=== PATIENT | female | born 1990 | race Caucasian/White ===

== ENCOUNTER 2020-04-10 00:56 | Emergency (ER) | payer SELFPAY ==
[2020-04-10 01:49] LABS: Urine Appearance CLOUDY; Urine Bilirubin NEGATIVE (NEG); Urine Blood NEGATIVE (NEG); Urine Color YELLOW; Urine Glucose NEGATIVE (NEG); Urine Protein NEGATIVE (NEG); Urine Specific Gravity <=1.005 (1.005-1.030); Urine Urobilinogen 0.2 mg/dL (0.2-1.0); Urine pH 6.5 (5.0-7.0)
[2020-04-10 01:50] LABS: Urine Microscopic Reflex ORDER UMIC
[2020-04-10 01:51] LABS: Urine Blood NEGATIVE (NEG); Urine Glucose NEGATIVE (NEG); Urine Protein NEGATIVE (NEG); Urine Specific Gravity 1.015 (1.005-1.030); Urine pH 6.5 (5.0-7.0)
[2020-04-10] MEDS ORDERED: NA CHLORIDE 0.9% 1,000 ML ONE (01:55)
[2020-04-10 01:56] LABS: Protime INR 1.02
[2020-04-10 01:57] LABS: Urine Bacteria <20 /HPF (<20); Urine Culture Reflex Order NOT NEEDED; Urine RBC <5 /HPF (NONE SEEN)
[2020-04-10 01:57] LABS: Absolute Lymphocytes (CBC) 2.2 K/uL (0.7-4.9); Basophils % 0.8 % (0-1.3); Hematocrit 40.8 % (36.0-45.0); Lymphocytes % 39.5 % (15.3-44.8); MPV 8.7 fL (7.6-11.3)
[2020-04-10 02:01] LABS: Barbiturates NEGATIVE (NEGATIVE); METHAMPHETAM NEGATIVE (NEGATIVE); Methadone NEGATIVE (NEGATIVE); Opiates NEGATIVE (NEGATIVE); Phencyclidine NEGATIVE (NEGATIVE)
[2020-04-10 02:02] LABS: Benzodiazepines POSITIVE (NEGATIVE); Cocaine POSITIVE (NEGATIVE); THC Cannibis POSITIVE (NEGATIVE)
[2020-04-10 02:13] LABS: ALT/SGPT 22 U/L (12-78); AST/SGOT 12 U/L (15-37); Albumin 4.1 g/dL (3.4-5.0); Alkaline Phosphatase 44 U/L (45-117); BUN Blood Urea Nitrogen 6 mg/dL (7-18); Bicarbonate 25 mmol/L (21-32); Bilirubin Direct < 0.1 mg/dL (0-0.2); Bilirubin Total 0.2 mg/dL (0.2-1.0); Glucose Level 102 mg/dL (74-106); Magnesium 2.1 mg/dL (1.8-2.4); NT PRO-BNP 10 pg/mL (<125); Potassium 3.2 mmol/L (3.5-5.1); Sodium Level 139 mmol/L (136-145); Troponin (Emerg Dept Use Only) < 0.02 ng/mL (0.0-0.045)
--- NOTE | 2020-04-10 05:13 | ER ---
Nurse's Notes [facility] Name: Adam Chisholm Age: 29 yrs Sex: Female : 1990 Arrival Date: 04/10/2020 Time: 00:57 Bed 7 Private MD: Diagnosis: Alcohol use, unspecified with intoxication;Cocaine abuse;Other psychoactive substance abuse; related conditions, unspecified, first trimester Presentation: 04/10 01:02 Chief complaint: Patient states: passed out 45-an hour ago. admitted to be drinking liquor two hours ago. Vomiting for two to three days now, today vomited 4x already. denies diarrhea and constipation. Coronavirus screen: Proceed with normal triage. Ebola Screen: No symptoms or risks identified at this time. Initial Sepsis Screen: Does the patient meet any 2 criteria? No. Patient's initial sepsis screen is negative. Does the patient have a suspected source of infection? No. Patient's initial sepsis screen is negative. Risk Assessment: Do you want to hurt yourself or someone else? Patient reports no desire to harm self or others. Onset of symptoms is unknown. 01:02 Method Of Arrival: Ambulatory 01:02 Acuity: MARTIN 3 rv Triage Assessment: 01:06 General: Appears comfortable, Behavior is calm, cooperative. Pain: Complains of pain in rv left upper quadrant and left lower quadrant Pain currently is 10 out of 10 on a pain scale. Quality of pain is described as crampy, Is intermittent. EENT: No signs and/or symptoms were reported regarding the EENT system. Neuro: Level of Consciousness is awake, alert, obeys commands, Oriented to person, place, time, situation. Cardiovascular: Patient's skin is warm and dry. Respiratory: Airway is patent Respiratory effort is even, unlabored. GI: Abdomen is flat, non-distended, Bowel sounds present X 4 quads. Reports lower abdominal pain, upper abdominal pain, nausea, vomiting. : No signs and/or symptoms were reported regarding the genitourinary system. Derm: Skin is intact. 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 - Social history:: Smoking status: Patient reports the use of cigarette tobacco products, smokes one-half pack cigarettes per day. Screenin:08 Abuse screen: Denies threats or abuse. Denies injuries from another. Nutritional rv screening: No deficits noted. Tuberculosis screening: No symptoms or risk factors identified. Fall Risk None identified. Assessment: 01:53 Reassessment: DR MANN UPDATED THE PATIENT REGARDING CURRENT . rv 03:00 Reassessment: Patient appears in no apparent distress at this time. Patient and/or jb4 family updated on plan of care and expected duration. Pain level reassessed. Patient is alert, oriented x 3, equal unlabored respirations, skin warm/dry/pink. 05:00 Reassessment: Patient appears in no apparent distress at this time. Patient and/or jb4 family updated on plan of care and expected duration. Pain level reassessed. Patient is alert, oriented x 3, equal unlabored respirations, skin warm/dry/pink. Patient states feeling better. Vital Signs: 01:02 BP 124 / 83; Pulse 117; Resp 19; Pulse Ox 100% ; Weight 67.13 kg; Height 5 ft. 4 in. rv (162.56 cm); Pain 10/10; 01:08 Temp 99.1(O); rv 03:00 BP 100 / 63; Pulse 95; Resp 16; Pulse Ox 96% on R/A; jb4 04:00 BP 98 / 68; Pulse 84; Resp 18; Pulse Ox 96% on R/A; rv 05:00 BP 103 / 73; Pulse 86; Resp 16; Pulse Ox 96% on R/A; jb4 01:02 Body Mass Index 25.40 (67.13 kg, 162.56 cm) rv ED Course: 00:57 Patient arrived in ED. cl3 00:58 Rk Dominguez RN is Primary Nurse. rv 01:05 Triage completed. rv 01:08 Arm band placed on Patient placed in the treatment room, on a stretcher, Patient rv notified of wait time. 01:08 Patient has correct armband on for positive identification. Bed in low position. Call rv light in reach. Side rails up X 1. Pulse ox on. NIBP on. 01:09 Doe Mann MD is Attending Physician. [facility] 01:45 Inserted saline lock: 18 gauge in left antecubital area, using aseptic technique. Blood rv collected. 01:47 Radiology exam delayed due to Currently with X-Ray. kw1 01:59 XRAY Chest (1 view) In Process Unspecified. EDMS 02:09 CT Head Brain wo Cont In Process Unspecified. EDMS 04:19 US Transvaginal Ob In Process Unspecified. EDMS 05:21 No provider procedures requiring assistance completed. IV discontinued, intact, rv bleeding controlled, No redness/swelling at site. Pressure dressing applied. Administered Medications: 01:52 Drug: NS 0.9% 1000 ml Route: IV; Rate: 125 ml/hr; Site: left antecubital; rv 05:20 Follow up: IV Status: Completed infusion; IV Intake: 250ml rv Intake: 05:20 IV: 250ml; Total: 250ml. rv Outcome: 05:13 Discharge ordered by . 7 05:21 Discharged to home ambulatory. rv 05:21 Condition: good 05:21 Discharge instructions given to patient, Instructed on discharge instructions, follow up and referral plans. Demonstrated understanding of instructions, follow-up care. 05:21 Patient left the ED. rv Signatures: Dispatcher [employer] EDMS Davy Booker, ANTHONY RN Itzel Marquis kw1 Rk Dominguez, ANTHONY RN Andrez Bonilla cl3 Doe Mann MD MD mh7
--- NOTE | 2020-04-10 05:14 | EDPHYS ---
Physician Documentation [facility] Name: Adam Chisholm Age: 29 yrs Sex: Female : 1990 Arrival Date: 04/10/2020 Time: 00:57 Bed 7 Private MD: ED Physician Doe Mann HPI: 04/10 01:31 This 29 yrs old Female presents to ER via Ambulatory with complaints of mh7 Passed Out Prior To Arrival, Vomiting. 01:31 The patient has experienced syncope, collapsed, lost consciousness. Onset: The mh7 symptoms/episode began/occurred 4 hour(s) ago. Duration: This was a single episode, that lasted an unknown period of time. Context: the episode(s) was witnessed, by family, cousin. Associated injury: The patient did not suffer any apparent associated injury. Associated signs and symptoms: Pertinent positives: dizziness, lightheadedness, Pertinent negatives: abdominal pain, agitation, ataxia, blurred vision, chest pain, combativeness, confusion, diaphoresis, diarrhea, headache, numbness, palpitations, seizure, shortness of breath, tingling, vertigo, weakness. Current symptoms: lightheadedness. The patient has not experienced similar symptoms in the past. Patient states that she was out family and had a few drinks then later felt dizzy with lightheaded and passed out. She states it was a brief episode according to her family. She later ate food from a restaurant and had nausea and vomiting.. 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 - Social history:: Smoking status: Patient reports the use of cigarette tobacco products, smokes one-half pack cigarettes per day. ROS: 01:31 Constitutional: Negative for fever, chills, and weight loss, Eyes: Negative for injury, mh7 pain, redness, and discharge, ENT: Negative for injury, pain, and discharge, Neck: Negative for injury, pain, and swelling, Cardiovascular: Negative for chest pain, palpitations, and edema, Respiratory: Negative for shortness of breath, cough, wheezing, and pleuritic chest pain, Back: Negative for injury and pain, : Negative for injury, bleeding, discharge, and swelling, MS/Extremity: Negative for injury and deformity, Skin: Negative for injury, rash, and discoloration, Psych: Negative for depression, anxiety, suicide ideation, homicidal ideation, and hallucinations, Allergy/Immunology: Negative for hives, rash, and allergies, Endocrine: Negative for neck swelling, polydipsia, polyuria, polyphagia, and marked weight changes, Hematologic/Lymphatic: Negative for swollen nodes, abnormal bleeding, and unusual bruising. Exam: : Constitutional: This is a well developed, well nourished patient who is awake, alert, mh7 and in no acute distress. Head/Face: Normocephalic, atraumatic. Eyes: Pupils equal round and reactive to light, extra-ocular motions intact. Lids and lashes normal. Conjunctiva and sclera are non-icteric and not injected. Cornea within normal limits. Periorbital areas with no swelling, redness, or edema. ENT: Nares patent. No nasal discharge, no septal abnormalities noted. Tympanic membranes are normal and external auditory canals are clear. Oropharynx with no redness, swelling, or masses, exudates, or evidence of obstruction, uvula midline. Mucous membranes moist. Neck: Trachea midline, no thyromegaly or masses palpated, and no cervical lymphadenopathy. Supple, full range of motion without nuchal rigidity, or vertebral point tenderness. No Meningismus. Chest/axilla: Normal chest wall appearance and motion. Nontender with no deformity. No lesions are appreciated. Cardiovascular: Regular rate and rhythm with a normal S1 and S2. No gallops, murmurs, or rubs. Normal PMI, no JVD. No pulse deficits. Respiratory: Lungs have equal breath sounds bilaterally, clear to auscultation and percussion. No rales, rhonchi or wheezes noted. No increased work of breathing, no retractions or nasal flaring. Abdomen/GI: Soft, non-tender, with normal bowel sounds. No distension or tympany. No guarding or rebound. No evidence of tenderness throughout. Back: No spinal tenderness. No costovertebral tenderness. Full range of motion. Skin: Warm, dry with normal turgor. Normal color with no rashes, no lesions, and no evidence of cellulitis. MS/ Extremity: Pulses equal, no cyanosis. Neurovascular intact. Full, normal range of motion. 01:31 Neuro: Orientation: is normal, to person, place \T\ time. Mentation: is normal, Memory: is normal, Cranial nerves: grossly normal, Cerebellar function: is grossly normal, Motor: is normal, Sensation: is normal, Gait: is steady, at a normal pace, without difficulty, seizure activity, is not displayed by the patient, Abnormal movements: there are no abnormal movements. 03:40 ECG was reviewed by the Attending Physician. [facility] Vital Signs: 01:02 BP 124 / 83; Pulse 117; Resp 19; Pulse Ox 100% ; Weight 67.13 kg; Height 5 ft. 4 in. rv (162.56 cm); Pain 10/10; 01:08 Temp 99.1(O); rv 03:00 BP 100 / 63; Pulse 95; Resp 16; Pulse Ox 96% on R/A; jb4 04:00 BP 98 / 68; Pulse 84; Resp 18; Pulse Ox 96% on R/A; rv 05:00 BP 103 / 73; Pulse 86; Resp 16; Pulse Ox 96% on R/A; jb4 01:02 Body Mass Index 25.40 (67.13 kg, 162.56 cm) rv MDM: 01:09 Patient medically screened. [facility] 05:02 Differential Diagnosis: cardiac arrhythmia, drug effect, , vasovagal episode, 7 syncope, near syncope. Data reviewed: vital signs, nurses notes, lab test result(s), EKG, radiologic studies, CT scan, plain films, ultrasound. Data interpreted: quality assurance monitor final: rate is 95 beats/min, rhythm is normal sinus rhythm, regular, Interpretation: normal rate, normal rhythm, Pulse oximetry: on room air is 96 %. Interpretation: normal. Counseling: I had a detailed discussion with the patient and/or guardian regarding: the historical points, exam findings, and any diagnostic results supporting the discharge/admit diagnosis, lab results, radiology results, the need for outpatient follow up, smoking cessation. Drug use cessation. Response to treatment: the patient's symptoms have resolved after treatment, the patient's blood pressure is in an acceptable range, mental status has returned to baseline, the patient no longer shows bradycardia, the patient is not short of breath, the patient is not tachycardic, the patient's pain is gone, the patient's temperature has normalized. ED course: Feels better, NAD, VSS, no focal neurological deficits. Awake, alert, and oriented x 3. No dizziness, chest pain, abdominal pain, nausea, vomiting. Tolerating oral intake and ambulating without difficulty. Discussed all test results and findings with the patient and answered all of her questions. She requests to be discharged from the ED at this time. Recommended follow up with primary doctor in 1-2 days but may return to ED if worsening of symptoms or other concerns.. 04/10 01:31 Order name: Basic Metabolic Panel [facility] 04/10 01: Order name: CBC with Diff [facility] 04/10 01:31 Order name: LFT's [facility] 04/10 01:31 Order name: Magnesium; Complete Time: 03:17 [facility] 04/10 01:31 Order name: NT PRO-BNP; Complete Time: 03:17 [facility] 04/10 01:31 Order name: PT-INR; Complete Time: 02:08 [facility] 04/10 01:31 Order name: Troponin (emerg Dept Use Only); Complete Time: 03:17 [facility] 04/10 01:31 Order name: UA; Complete Time: 02:08 [facility] 04/10 01:31 Order name: UDS; Complete Time: 02:08 [facility] 04/10 01:31 Order name: Alcohol Level; Complete Time: 02:08 [facility] 04/10 01:31 Order name: Test, Serum; Complete Time: 02:08 [facility] 04/10 01:31 Order name: Basic Metabolic Panel; Complete Time: 03:17 [facility] 04/10 01:31 Order name: CBC with Automated Diff; Complete Time: 02:08 [facility] 04/10 01:31 Order name: Liver (Hepatic) Function; Complete Time: 03:17 [facility] 04/10 01:31 Order name: XRAY Chest (1 view) [facility] 04/10 01:31 Order name: EKG; Complete Time: 01:31 [facility] 04/10 01:31 Order name: Cardiac monitoring; Complete Time: 01:53 [facility] 04/10 01:31 Order name: EKG - Nurse/Tech; Complete Time: 02:30 [facility] 04/10 01:31 Order name: IV Saline Lock; Complete Time: 01:53 [facility] 04/10 01:31 Order name: Labs collected and sent; Complete Time: [facility] 04/10 01:31 Order name: O2 Per Protocol; Complete Time: [facility] 04/10 01:31 Order name: O2 Sat Monitoring; Complete Time: : [facility] 04/10 01:31 Order name: CT Head Brain wo Cont [facility] 04/10 01:48 Order name: Urine Dipstick--Ancillary (enter results); Complete Time: 02: [facility] 04/10 01:48 Order name: Urine --Ancillary (enter results); Complete Time: 02: [facility] 04/10 01:48 Order name: US Transvaginal Ob [facility] 04/10 01:50 Order name: Urine Microscopic Only; Complete Time: 02:08 EDMS EC:40 Rate is 103 beats/min. Rhythm is regular. QRS [place] is Normal. LA interval is normal. mh7 QRS interval is normal. QT interval is normal. No Q waves. T waves are Inverted in leads V1, V2, V3. No ST changes noted. Clinical impression: NSR w/ Non-specific ST/T Changes. Administered Medications: 01:52 Drug: NS 0.9% 1000 ml Route: IV; Rate: 125 ml/hr; Site: left antecubital; rv 05:20 Follow up: IV Status: Completed infusion; IV Intake: 250ml rv Disposition: 04/10/20 05:13 Discharged to Home. Impression: Alcohol use, unspecified with intoxication, Cocaine abuse, Other psychoactive substance abuse, related conditions, unspecified, first trimester. - Condition is Stable. - Discharge Instructions: Stimulant Use Disorder-Cocaine, Alcohol Intoxication, [id number], Alcohol Use During , Syncope, [id number]. - Medication Reconciliation Form, Thank You Letter, Antibiotic Education, Prescription Opioid Use form. - Follow up: Private Physician; When: 1 - 2 days; Reason: Worsening of condition, Re-evaluation by your physician. - Problem is new. - Symptoms are resolved. Signatures: Dispatcher [employer] EDRk Arredondo RN RN rv Doe Mann MD MD mh7 Corrections: (The following items were deleted from the chart) 05:21 05:13 04/10/2020 05:13 Discharged to Home. Impression: Alcohol use, unspecified with rv intoxication; Cocaine abuse; Other psychoactive substance abuse; related conditions, unspecified, first trimester. Condition is Stable. Forms are Medication Reconciliation Form, Thank You Letter, Antibiotic Education, Prescription Opioid Use. Follow up: Private Physician; When: 1 - 2 days; Reason: Worsening of condition, Re-evaluation by your physician. Problem is new. Symptoms are resolved. mh7
[2020-04-10 05:39] VITALS: TEMP 99.1
[2020-04-10 05:47] VITALS: O2SAT 96
[2020-04-10 05:49] VITALS: BP 103/73
--- NOTE | 2020-04-10 08:35 | RAD REPORT ---
EXAM DESCRIPTION: RAD - Chest Single View - 04/10/2020 1:59 am CLINICAL HISTORY: syncope Chest pain. COMPARISON: No comparisons FINDINGS: Portable technique limits examination quality. The lungs are grossly clear. The heart is normal in size. No displaced fractures. IMPRESSION: No acute intrathoracic process suspected.
--- NOTE | 2020-04-10 09:55 | RAD REPORT ---
EXAM DESCRIPTION: Transvaginal OB CLINICAL HISTORY: The patient is 29 years old and is Female; possible ectopic TECHNIQUE: Real-time transvaginal obstetrical ultrasound of the maternal pelvis and a first trimeste r with image documentation. Transvaginal imaging was used for better evaluation of the fe tus and adnexa. COMPARISON: No relevant prior studies available. FINDINGS: Gestation: Single intrauterine gestational sac, yolk sac and pole. [address]-rump [place] th 7.1 mm. Embryonic heart rate 136 bpm. Placenta/amniotic fluid: Cannot be adequately evaluated due to the early gestational age. Uterus/cervix: Uterus is 8.9 x 5.1 x 7.1 cm in size. No myometrial mass. Ovaries: Right ovarian simple cyst 1.7 cm. Right ovary 2.3 x 3.8 x 2.2 cm in size. Color flow Doppler and spectral waveform detected. N o torsion. Left ovary 3.3 x 1.3 x 2.9 cm in size. Color-flow Doppler and spectral waveform detected. No torsion. Free fluid: Free fluid in the cul-de-sac. IMPRESSION: 1. Single live with EGA 6 weeks and 5 days. 2. Right ovarian simple cyst 1.7 cm. 3. No ovarian torsion. Electronically signed by: Lauren Bobby MD 04/10/2020 4:38 AM CDT Due to temporary technical issues with the PACS/Fluency reporting system, reports are being signed by the in house radiologist as a courtesy to ensure prompt reporting. The interpreting radiologist is f ully responsible for the content of the report.
--- NOTE | 2020-04-10 10:38 | RAD REPORT ---
EXAM DESCRIPTION: CT Head Without Intravenous Contrast CLINICAL HISTORY: The patient is 29 years old and is Female; SYNCOPE TECHNIQUE: Axial computed tomography images of the head/brain without intravenous contrast. Sagittal and cor onal reformatted images were created and reviewed. This CT exam was performed using one or more of the following dose reduction techniques: automated exposure control, adjustment of the mA and/or kV according to patient size, and/or use of iterative reconstruction technique. COMPARISON: No relevant prior studies available. FINDINGS: BRAIN: Unremarkable. The stephens-white matter differentiation is preserved . No hemorrhag e. No significant white matter disease. No edema. No extra-axial fluid collections. VENTRICLES: Unremarkable. No ventriculomegaly. BONES/JOINTS: No acute fracture. SOFT TISSUES: Unremarkable. SINUSES: Unremarkable as visualized. No acute sinusitis. MASTOID AIR CELLS: Unremarkable as visualized. No mastoid effusion. ORBITS: Unremarkable as visualized. IMPRESSION: No acute intracranial findings. Electronically signed by: Ingris Mora MD 04/10/2020 2:16 AM CDT Due to temporary technical issues with the PACS/Fluency reporting system, reports are being signed by the in house radiologist as a courtesy to ensure prompt reporting. The interpreting radiologist is f ully responsible for the content of the report.
--- NOTE | 2020-04-10 18:46 | EKG ---
Test Date: 2020-04-10 Test Time: 02:11:53 Compliance Program Manager: PAIGE MEASUREMENT RESULTS: Intervals: Rate: 103 ME: 112 QRSD: 94 QT: 350 QTc: 458 [place]: P: 38 ME: 112 QRS: 54 T: 41 INTERPRETIVE STATEMENTS: Sinus tachycardia Nonspecific T wave abnormality Abnormal ECG No previous ECG available for comparison Electronically Signed On 04-10-20 18:43:59 CDT by Luis E Gould
== END 2020-04-10 05:21 | disposition home or self-care (01) ==
LOC: ER 00:56
DX: O99.321 Drug use complicating pregnancy, first trimester (principal); O99.311 Alcohol use complicating pregnancy, first trimester; F10.129 Alcohol abuse with intoxication, unspecified; O99.331 Smoking (tobacco) complicating pregnancy, first trimester; F17.210 Nicotine dependence, cigarettes, uncomplicated; Z3A.01 Less than 8 weeks gestation of pregnancy
CPT/HCPCS: 36415; 70450; 71045; 76817; 80048; 80076; 80307; 80320; 81003; 81015; 81025; 83735; 83880; 84484; 84703; 85025; 85610; 93005; 96360; 96361; 99284; J7030

== ENCOUNTER 2021-11-22 17:08 | Emergency (ER) | payer SELFPAY ==
--- OUTSIDE RECORDS SUMMARY | 2021-11-22 17:10 | XMS REPORT | Continuity of Care Document ---
:1990 Author Organization [facility] t Address [address] [place] [address] Care Team Providers Name Role Phone DO PHILIP CALDERON Attending Clinician Unavailable YUMIKO Attending Clinician Unavailable DO PHILIP CALDERON Admitting Clinician Unavailable Problems This patient has no known problems. Allergies, Adverse Reactions, Alerts This patient has no known allergies or adverse reactions. Medications This patient has no known medications. Procedures This patient has no known procedures. Encounters Start End Encounter Admission Attending Care Care Encounter Source Date/Time Date/Time Type Type Clinicians Facility Department ID 2020-11-25 2020-11-25 Emergency MIRANDA CALDERON [facility] [id number] [place] 00:00:00 00:00:[address] Results Test Description Test Time Test Comments Results Result Comments Source SARS-CoV-2 (COVID-19) RNA [Presence] in Respiratory sp ecimen by 2020-11-26 09:24:43 ANA M with probe detection Test Item Value Reference Range Interpretation Comme nts SARS-CoV-2 (COVID-19) RNA [Presence] in Respiratory Not detected No t-Detected specimen by ANA M with probe detection (test code = 02749-6)
--- NOTE | 2021-11-22 19:44 | EDPHYS ---
Physician Documentation [facility] Name: Adam Chisholm Age: 31 yrs Sex: Female : 1990 Arrival Date: 11/22/2021 Time: 17:10 Bed Waiting Private MD: ED Physician Jarocho Dean HPI: 11/22 20:02 This 31 yrs old Black Female presents to ER via Unassigned with complaints of Sore kb Throat. 20:02 The patient presents with sore throat. The patient describes throat pain as constant. kb Onset: The symptoms/episode began/occurred 2 day(s) ago. Severity of symptoms: At their worst the symptoms were moderate, in the emergency department the symptoms are unchanged. Modifying factors: The symptoms are alleviated by nothing, the symptoms are aggravated by swallowing, Patient's oral intake status: limited fluid intake, limited food intake, Denies contact with similarly ill indivduals. Associated signs and symptoms: Pertinent positives: Sore throat. The patient has not experienced similar symptoms in the past. The patient has not recently seen a physician. 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 - Social history:: Smoking status: Patient reports the use of cigarette tobacco products. ROS: 20:02 Constitutional: Negative for fever, chills, and weight loss. kb 20:02 ENT: Positive for sore throat. 20:02 All other systems are negative. Exam: 20:02 Constitutional: This is a well developed, well nourished patient who is awake, alert, kb and in no acute distress. Head/Face: Normocephalic, atraumatic. Respiratory: Respirations even and unlabored. No increased work of breathing. Talking in full sentences Skin: Warm, dry with normal turgor. Normal color. MS/ Extremity: Pulses equal, no cyanosis. Neurovascular intact. Full, normal range of motion. Neuro: Awake and alert, GCS 15, oriented to person, place, time, and situation. Moves all extremities. Normal gait. Psych: Awake, alert, with orientation to person, place and time. Behavior, mood, and affect are within normal limits. 20:02 ENT: Posterior pharynx: Airway: normal, no evidence of obstruction, Tonsils: bilaterally enlarged, with erythema, with exudate, Uvula: normal, midline, swelling, that is mild, erythema, that is marked, exudate, that is mild. Vital Signs: 19:15 BP 102 / 72; Pulse 105; Resp 20; Temp 100.2; Pulse Ox 100% on R/A; Weight 59.87 kg; lp1 Height 5 ft. 4 in. (162.56 cm); 19:15 Body Mass Index 22.66 (59.87 kg, 162.56 cm) lp1 MDM: 19:06 Patient medically screened. kb 20:02 Data reviewed: vital signs, nurses notes. Data interpreted: Pulse oximetry: on room air kb is 100 %. Interpretation: normal. Counseling: I had a detailed discussion with the patient and/or guardian regarding: the historical points, exam findings, and any diagnostic results supporting the discharge/admit diagnosis, lab results, the need for outpatient follow up, a family practitioner, to return to the emergency department if symptoms worsen or persist or if there are any questions or concerns that arise at home. 11/22 19:06 Order name: Strep kb 11/22 19:07 Order name: Group A Streptococcus Rapid Sc; Complete Time: 19:32 EDMS 11/22 19:31 Order name: Throat Culture EDMS Administered Medications: 19:55 Drug: Ibuprofen 400 mg Route: PO; lp1 20:00 Follow up: Response: Medication administered at discharge. lp1 Disposition: 20:58 Co-signature as Attending Physician, Jarocho Dean MD I agree with the assessment and rn plan of care. Attestation: The patient's history, exam findings, diagnostics, and a summary of any interventions or procedures was reviewed in detail with Beata ESCOBAR. Disposition Summary: 11/22/21 19:43 Discharge Ordered Location: Home Condition: Stable kb Diagnosis - Acute tonsillitis, unspecified kb Followup: kb - With: Emergency Department - When: As needed - Reason: Worsening of condition Followup: kb - With: Private Physician - When: 2 - 3 days - Reason: Recheck today's complaints, Continuance of care, Re-evaluation by your physician Discharge Instructions: - Discharge Summary Sheet kb - Tonsillitis, Anbl-ud-Ilei kb Forms: - Medication Reconciliation Form kb - Thank You Letter kb - Antibiotic Education kb - Prescription Opioid Use kb Prescriptions: - Amoxicillin 875 mg Oral Tablet - take 1 tablet by ORAL route every 12 hours for 10 days; 20 tablet; Refills: 0, kb Product Selection Permitted Signatures: Dispatcher [employer] EDBeata Spears, JACOBOC Jarocho Olson MD MD rn Brittany Long RN RN lp1
[2021-11-22] MEDS ORDERED: IBUPROFEN 400 MG TAB ONE (19:56)
--- NOTE | 2021-11-23 20:04 | ER ---
Nurse's Notes [facility] Name: Adam Chisholm Age: 31 yrs Sex: Female : 1990 Arrival Date: 11/22/2021 Time: 17:10 Bed Waiting Private MD: Diagnosis: Acute tonsillitis, unspecified Presentation: 11/22 19:15 Chief complaint: Patient states: Sore throat x 2 days;. Coronavirus screen: At this lp1 time, the client does not indicate any symptoms associated with coronavirus-19. Ebola Screen: No symptoms or risks identified at this time. 19:15 Method Of Arrival: Ambulatory lp1 19:15 Initial Sepsis Screen: Does the patient meet any 2 criteria? No. Patient's initial lp1 sepsis screen is negative. Does the patient have a suspected source of infection? No. Patient's initial sepsis screen is negative. Risk Assessment: Do you want to hurt yourself or someone else? Patient reports no desire to harm self or others. Onset of symptoms was November 23, 2021. 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 - Social history:: Smoking status: Patient reports the use of cigarette tobacco products. Screenin:00 Abuse screen: Denies threats or abuse. Denies injuries from another. Nutritional lp1 screening: No deficits noted. Tuberculosis screening: No symptoms or risk factors identified. Fall Risk None identified. Assessment: 20:00 General: Appears in no apparent distress. Behavior is appropriate for age. Pain: lp1 Complains of pain in throat. Neuro: Level of Consciousness is awake, alert, obeys commands. Cardiovascular: Patient's skin is warm and dry. Respiratory: Respiratory effort is even, unlabored. EENT: Throat is reddened. Derm: Skin is pink, warm \T\ dry. Vital Signs: 19:15 BP 102 / 72; Pulse 105; Resp 20; Temp 100.2; Pulse Ox 100% on R/A; Weight 59.87 kg; lp1 Height 5 ft. 4 in. (162.56 cm); 19:15 Body Mass Index 22.66 (59.87 kg, 162.56 cm) lp1 ED Course: 17:10 Patient arrived in ED. ds1 19:06 Beata Russell FNP-C is [facility]. kb 19:06 Jarocho Dean MD is Attending Physician. kb 19:15 Arm band placed on. lp1 20:00 Patient has correct armband on for positive identification. lp1 20:00 No provider procedures requiring assistance completed. Patient did not have IV access lp1 during this emergency room visit. 11/23 02:16 Triage completed. lp1 Administered Medications: 11/22 19:55 Drug: Ibuprofen 400 mg Route: PO; lp1 20:00 Follow up: Response: Medication administered at discharge. lp1 Outcome: 19:43 Discharge ordered by . kb 20:00 Discharged to home ambulatory. lp1 20:00 Condition: good 20:00 Discharge instructions given to patient, Instructed on discharge instructions, follow up and referral plans. medication usage, Demonstrated understanding of instructions, follow-up care, medications, Prescriptions given X 1. 20:03 Patient left the ED. lp1 Signatures: Beata Russell FNP-C FNP-Ckb Sanford, Demi ds1 Brittany Long, RN RN lp1
== END 2021-11-22 20:03 | disposition home or self-care (01) ==
LOC: ER 17:08
DX: J03.90 Acute tonsillitis, unspecified (principal); Z72.0 Tobacco use
CPT/HCPCS: 87070; 87081; 99283

== ENCOUNTER 2023-08-05 08:24 | Emergency (ER) | payer OTHER ==
--- OUTSIDE RECORDS SUMMARY | 2023-08-05 08:27 | XMS REPORT | Continuity of Care Document ---
:1990 Author Organization [facility] t Address [address] [place] [address] Care Team Providers Name Role Phone Asked, No Pcp Primary Care Physician Unavailable DO MIRANDA CALDERON Attending Clinician Unavailable MIRANDA CALDERON Attending Clinician Unavailable DO MIRANDA CALDERON Admitting Clinician Unavailable Problems This patient has no known problems. Allergies, Adverse Reactions, Alerts This patient has no known allergies or adverse reactions. Social History Social Habit Start Date Stop Date Quantity Comments Source [facility] History of tobacco Smokes tobacco [facility] Gender identity [facility] Tobacco use and 2020-11-25 2020-11-25 Smokeless Nondenominational exposure 00:00:00 00:00:00 tobacco non-user Hospital Alcohol intake 2020-11-25 2020-11-25 Current drinker [facility] 00:00:00 00:00:00 of alcohol Hospital (finding) History of Social 2020-11-25 2020-11-[address] function 00:00:00 00:00:00 Hospital Sex Assigned At [birth year] Nondenominational 00:00:00 00:00:00 Hospital Smoking Status Start Date Stop Date Source Smokes tobacco daily 2020-11-25 00:00:00 [facility] Medications This patient has no known medications. Procedures This patient has no known procedures. Plan of Care Planned Activity Planned Date Details Comments Source Future Scheduled 2023-07-28 COVID-19 VACCINE (#1) [facility] Test 07:02:39 [code = COVID-19 VACCINE (#1)] Future Scheduled 2023-07-28 Pneumococcal Vaccine: [facility] Test 07:02:39 Pediatrics (0 to 5 Years) and At-Risk Patients (6 to 64 Years) (1 - PCV) [code = Pneumococcal Vaccine: Pediatrics (0 to 5 Years) and At-Risk Patients (6 to 64 Years) (1 - PCV)] Future Scheduled 2023-07-28 Hepatitis C screening [facility] Test 07:02:39 (procedure) [code = 867533345] Future Scheduled 2023-07-28 Screening for [facility] Test 07:02:39 malignant neoplasm of cervix (procedure) [code = 349809224] Future Scheduled 2023-07-28 INFLUENZA VACCINE (#1) [facility] Test 07:02:39 [code = INFLUENZA VACCINE (#1)] Encounters Start End Encounter Admission Attending Care Care Encounter Source Date/Time Date/Time Type Type Clinicians Facility Department ID 2020-11-25 2020-11-25 Emergency YUMIKO, MIRANDA [facility] [id number] [place] 00:00:00 00:00:[address] Results Test Description Test Time Test Comments Results Result Comments Source SARS-CoV-2 (COVID-19) RNA [Presence] in Respiratory sp ecimen by 2020-11-26 09:24:43 ANA M with probe detection Test Item Value Reference Range Interpretation Comme nts SARS-CoV-2 (COVID-19) RNA [Presence] in Respiratory Not detected No t-Detected specimen by ANA M with probe detection (test code = 91927-3) [facility]
[2023-08-05] MEDS ORDERED: dexAMETHasone 10 MG/ML VIAL ONE (08:52)
[2023-08-05 09:25] LABS: SARS-CoV-2 Antigen Rapid Res Negative (Negative)
--- NOTE | 2023-08-05 10:25 | EDPHYS ---
Physician Documentation [facility] Name: Adam Chisholm Age: 33 yrs Sex: Female : 1990 Arrival Date: 08/05/2023 Time: 08:24 Bed 18 Private MD: ED Physician Jarocho Dean HPI: 08/05 10:17 This 33 yrs old Black Female presents to ER via Ambulatory with complaints of sore rn throat. 10:17 The patient has shortness of breath at rest. Onset: The symptoms/episode began/occurred rn this morning. Duration: The symptoms are continuous. The patient's shortness of breath is aggravated by nothing, is alleviated by nothing. Associated signs and symptoms: Pertinent negatives: chest pain, fever, hemoptysis. Severity of symptoms: At their worst the symptoms were mild in the emergency department the symptoms are unchanged. The patient has not experienced similar symptoms in the past. Patient reports sore throat that began this morning. Positive for low-grade fever. No known sick contacts. No shortness of breath. No focal swelling. Historical: - Allergies: 08:37 No Known Allergies; hb - Home Meds: 08:37 None [Active]; hb - PMHx: 08:37 Asthma; hb - Immunization history:: Adult Immunizations up to date. - Social history:: Smoking status: Patient denies any tobacco usage or history of. - Family history:: not pertinent. - Hospitalizations: : No recent hospitalization is reported. ROS: 10:17 Constitutional: Positive for fever ENT: Positive for sore throat Cardiovascular: rn Negative for chest pain, palpitations, and edema, Respiratory: Negative for shortness of breath, cough, wheezing, and pleuritic chest pain. Exam: 10:17 Constitutional: This is a well developed, well nourished patient who is awake, alert, rn and in no acute distress. Head/Face: Normocephalic, atraumatic. ENT: Mild pharyngeal erythema, uvula midline, no stridor, no evidence of peritonsillar abscess Cardiovascular: Regular rate and rhythm. No pulse deficits. Respiratory: No increased work of breathing, no retractions or nasal flaring. Skin: Warm, dry MS/ Extremity: Pulses equal, no cyanosis. Neuro: Awake and alert, GCS 15 Vital Signs: 08:35 BP 127 / 89; Pulse 96; Resp 18; Temp 99.9(O); Pulse Ox 100% on R/A; Weight 56.7 kg; hb Height 5 ft. 8 in. ; Pain 7/10; 10:24 BP 105 / 90; Pulse 92; Resp 18; Temp 99.3(O); Pulse Ox 97% ; nj1 08:35 Body Mass Index 19.01 (56.70 kg, 172.72 cm) hb 08:35 Pain Scale: Adult hb MDM: 08:33 Patient medically screened. rn 10:17 Differential diagnosis: strep, flu, COVID, viral illness. Data reviewed: vital signs, rn nurses notes, lab test result(s), and as a result, I will discharge patient. Counseling: I had a detailed discussion with the patient and/or guardian regarding the historical points, exam findings, and any diagnostic results supporting the discharge/admit diagnosis, lab results, the need for outpatient follow up, to return to the emergency department if symptoms worsen or persist or if there are any questions or concerns that arise at home. Special discussion: I discussed with the patient/guardian in detail that at this point there is no indication for admission to the hospital. It is understood, however, that if the symptoms persist or worsen the patient needs to return immediately for re-evaluation. 08/05 08:37 Order name: SARS RAPID; Complete Time: 10: rn 08/05 08:37 Order name: Flu; Complete Time: 10: rn 08/05 08:37 Order name: Strep rn 08/05 09:26 Order name: Throat Culture EDMS Administered Medications: 08:47 Drug: Dexamethasone IM 10 mg Route: IM; Site: left deltoid; ko1 09:23 Follow up: Response: No adverse reaction nj1 10:23 Drug: Amoxicillin-Clavulanate PO 875 mg Route: PO; nj1 10:46 Follow up: Response: No adverse reaction nj1 Disposition Summary: 08/05/23 10:25 Discharge Ordered Location: Home rn Problem: new rn Symptoms: have improved rn Condition: Stable rn Diagnosis - Acute pharyngitis, unspecified rn Followup: rn - With: Private Physician - When: As needed - Reason: Recheck today's complaints, Re-evaluation by your physician Discharge Instructions: - Discharge Summary Sheet rn - Pharyngitis rn Forms: - Medication Reconciliation Form rn - Thank You Letter rn - Antibiotic metal patternmaker - Prescription Opioid Use rn - Patient Portal Instructions rn - Leadership Thank You Letter rn - Work release form nj1 Prescriptions: - Augmentin 875-125 mg Oral Tablet - take 1 tablet by ORAL route every 12 hours for 10 days; 20 tablet; Refills: 0, rn Product Selection Permitted - Medrol (Theo) 4 mg Oral Tablets, Dose Pack - take 1 tablet by ORAL route as directed - follow package instructions; 1 rn packet; Refills: 0, Product Selection Permitted Signatures: Dispatcher [employer] Jarocho Gipson MD MD rn Baxter, Heather, RN RN Samanta Woodall RN RN ko1 Gabrielle Aldrigde RN RN nj1
--- NOTE | 2023-08-05 10:25 | ER ---
Nurse's Notes [facility] Name: Adam Chisholm Age: 33 yrs Sex: Female : 1990 Arrival Date: 08/05/2023 Time: 08:24 Bed 18 Private MD: Diagnosis: Acute pharyngitis, unspecified Presentation: 08/05 08:35 Chief complaint: Sore throat upon waking today, feels like her throat is closing up. hb Coronavirus screen: Client presents with at least one sign or symptom that may indicate coronavirus-19. Standard/surgical mask placed on the client. Provider contacted for isolation considerations. Ebola Screen: No symptoms or risks identified at this time. Initial Sepsis Screen: Does the patient meet any 2 criteria? No. Patient's initial sepsis screen is negative. Does the patient have a suspected source of infection? No. Patient's initial sepsis screen is negative. Risk Assessment: Do you want to hurt yourself or someone else? Patient reports no desire to harm self or others. Onset of symptoms was August 05, 2023. 08:35 Method Of Arrival: Ambulatory 08:35 Acuity: MARTIN 4 hb Historical: - Allergies: 08:37 No Known Allergies; hb - Home Meds: 08:37 None [Active]; hb - PMHx: 08:37 Asthma; hb - Immunization history:: Adult Immunizations up to date. - Social history:: Smoking status: Patient denies any tobacco usage or history of. - Family history:: not pertinent. - Hospitalizations: : No recent hospitalization is reported. Screenin:21 [facility] ED Fall Risk Assessment (Adult) Score/Fall Risk Level 0 - 2 = Low Risk nj1 Oriented to surroundings, Maintained a safe environment, Hourly rounding (assess needs \T\ fall precautionary measures) done. Abuse screen: Denies threats or abuse. Denies injuries from another. Nutritional screening: No deficits noted. Tuberculosis screening: No symptoms or risk factors identified. Assessment: 09:15 General: Appears in no apparent distress. uncomfortable, Behavior is calm, cooperative, nj1 appropriate for age. 09:15 Pain: Complains of pain in Throat. Neuro: Level of Consciousness is awake, alert, obeys nj1 commands, Oriented to person, place, time, situation. Cardiovascular: Patient's skin is warm and dry. Respiratory: Airway is patent Respiratory effort is even, unlabored. EENT: Reports difficulty swallowing. 10:24 Reassessment: Patient appears in no apparent distress at this time. Patient and/or nj1 family updated on plan of care and expected duration. Pain level reassessed. Patient is alert, oriented x 3, equal unlabored respirations, skin warm/dry/pink. Vital Signs: 08:35 BP 127 / 89; Pulse 96; Resp 18; Temp 99.9(O); Pulse Ox 100% on R/A; Weight 56.7 kg; hb Height 5 ft. 8 in. ; Pain 7/10; 10:24 BP 105 / 90; Pulse 92; Resp 18; Temp 99.3(O); Pulse Ox 97% ; nj1 08:35 Body Mass Index 19.01 (56.70 kg, 172.72 cm) hb 08:35 Pain Scale: Adult hb ED Course: 08:26 Patient arrived in ED. mg5 08:33 Jarocho Dean MD is Attending Physician. rn 08:37 Triage completed. hb 08:44 Flu Sent. ll1 08:44 Strep Sent. ll1 08:44 SARS RAPID Sent. ll1 09:08 Gabrielle Aldridge, RN is Primary Nurse. nj1 09:15 Thermoregulation: warm blanket given to patient. nj1 09:22 Arm band placed on. nj1 09:22 Patient has correct armband on for positive identification. Bed in low position. Call nj1 light in reach. Provided Education on: fall precautions, call light. 10:43 No provider procedures requiring assistance completed. Patient did not have IV access nj1 during this emergency room visit. Administered Medications: 08:47 Drug: Dexamethasone IM 10 mg Route: IM; Site: left deltoid; ko1 09:23 Follow up: Response: No adverse reaction nj1 10:23 Drug: Amoxicillin-Clavulanate PO 875 mg Route: PO; nj1 10:46 Follow up: Response: No adverse reaction nj1 Medication: 10:44 VIS not applicable for this client. nj1 Outcome: 10:25 Discharge ordered by . rn 10:44 Discharged to home ambulatory. nj1 10:44 Condition: stable 10:44 Discharge instructions given to patient, Instructed on discharge instructions, follow up and referral plans. medication usage, Demonstrated understanding of instructions, follow-up care, medications. 10:45 Patient left the ED. nj1 Signatures: Jarocho Dean MD MD rn Baxter, Heather RN RN Dannie Rosen RN RN 1 Samanta Shah RN RN koGabrielle Bingham RN RN nj1 Fátima Garrett mg5 Corrections: (The following items were deleted from the chart) 10:37 10:24 BP 105 / 90; Pulse 92bpm; Resp 18bpm; Pulse Ox 97%; nj1 nj1
[2023-08-05] MEDS ORDERED: AMOX/K CLAV 875 MG TAB ONE (10:32)
[2023-08-05 11:30] VITALS: BP 105/90; TEMP 99.3; O2SAT 97
== END 2023-08-05 10:45 | disposition home or self-care (01) ==
LOC: ER 08:24
DX: J02.9 Acute pharyngitis, unspecified (principal); R06.02 Shortness of breath; Z20.822 Contact with and (suspected) exposure to COVID-19
CPT/HCPCS: 87070; 36415; 87081; 87804 ×2; 96372; 99285; 87811; J1100

== ENCOUNTER 2024-12-10 12:36 | Emergency (ER) | payer OTHER, SELFPAY ==
[2024-12-10 13:40] LABS: Absolute Lymphocytes (CBC) 0.6 K/uL (0.7-4.9); Absolute Monocytes 0.3 K/uL (0.1-1.3); Absolute Neutrophil 0.8 K/uL (1.8-8.0); Basophils % 0.8 % (0-1.3); Hematocrit 39.7 % (36.0-45.0); Hemoglobin 13.4 g/dL (12.0-15.0); Lymphocytes % 36.3 % (15.3-44.8); MCH 34.3 pg (27.0-35.0); MCHC 33.8 g/dL (32.0-36.0); MCV 101.5 fL (80-100); MPV 8.7 fL (7.6-11.3); Monocytes % 17.9 % (3.3-12.3); Platelets 224 thou/uL (152-406); RBC Red Blood Cell Count 3.91 M/uL (3.86-4.86); Red Cell Distribution Width 12.4 % (12.1-15.2)
[2024-12-10 13:43] LABS: Specific Gravity > 1.030 (1.005-1.030)
[2024-12-10 13:44] LABS: Specific Gravity > 1.030 (1.005-1.030); Urine Bacteria None Seen /HPF (<20); Urine Bilirubin NEGATIVE (Negative); Urine Blood Negative (Negative); Urine Clarity Extremely Turbid (Clear); Urine Color Yellow (Yellow); Urine Culture Reflex Order NOT NEEDED; Urine Glucose NEGATIVE (Negative); Urine Ketones 1+ (Negative); Urine Microscopic Reflex YN ORDER UMIC; Urine Mucus Slight /HPF (None Seen); Urine Nitrite NEGATIVE (Negative); Urine Protein 1+ (Negative); Urine RBC <5 /HPF (None Seen); Urine Urobilinogen 4+ (Over) (Normal); Urine WBC <5 /HPF (<5)
[2024-12-10 13:56] LABS: Albumin 3.9 g/dL (3.4-5.0); Albumin/Globulin Ratio 0.8 (1.1-1.8); Anion Gap 7.5 mEq/L (5.0-15.0); Bilirubin Total 0.8 mg/dL (0.2-1.0); Globulin 5.2 g/dL (2.3-3.5); Potassium 3.5 mEq/L (3.5-5.1); Protein, Total 9.1 g/dL (6.4-8.2)
[2024-12-10] MEDS ORDERED: ONDANSETRON 4 MG/2 ML VIAL ONE (14:31)
[2024-12-10] MEDS ORDERED: NA CHLORIDE 0.9% 1,000 ML ONE (14:31)
[2024-12-10] MEDS ORDERED: FAMOTIDINE 20 MG/2 ML VIAL IV ONE (14:31)
[2024-12-10 15:33] LABS: SARS-CoV-2 Antigen CONTROL BLUE LINE VIS/BG OK; SARS-CoV-2 Antigen Rapid Res Negative (Negative)
--- NOTE | 2024-12-10 15:36 | EDPHYS ---
Physician Documentation [facility] Name: Adam Chisholm Age: 34 yrs Sex: Female : 1990 Arrival Date: 12/10/2024 Time: 12:36 Bed 12 Private MD: ED Physician Felisa Navas HPI: 12/10 13:08 This 34 yrs old Black Female presents to ER via Ambulatory with complaints of Fever, kb Vomiting. 13:08 Pt is a 34 year old female who presents for n/v/d and chills that started yesterday. kb Reports upper abd pain when vomiting. Denies fever. States her son has had similar symptoms. . 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 - Infectious Disease History:: Denies. - Social history:: Smoking status: Reported history of juuling and/or vaping. ROS: 13:08 Constitutional: As per HPI kb Exam: 13:08 Constitutional: This is a well developed, well nourished patient who is awake, alert, kb and in no acute distress. Head/Face: Normocephalic, atraumatic. ENT: Moist Mucous membranes Cardiovascular: Regular rate Respiratory: Respirations even and unlabored. No increased work of breathing. Talking in full sentences Abdomen/GI: Soft, non-tender. No distention Skin: Warm, dry with normal turgor. Normal color. MS/ Extremity: Pulses equal, no cyanosis. Neurovascular intact. Full, normal range of motion. Neuro: Awake and alert, GCS 15, oriented to person, place, time, and situation. Vital Signs: 12:58 BP 111 / 77; Pulse 93; Resp 17; Temp 98.5(O); Pulse Ox 98% on R/A; MAP 89 mmHg; Weight tm6 58.06 kg; Height 5 ft. 4 in. ; Pain 7/10; 12:58 Body Mass Index 21.97 (58.06 kg, 162.56 cm) tm6 12:58 Pain Scale: Adult tm6 MDM: 12:57 Medical Screening Exam initiated kb 13:09 Differential diagnosis: gastroenteritis, flu, covid. Data reviewed: vital signs, nurses kb notes. 15:36 Test considered but Not performed: CT: ct abd considered but pt nontoxic in appearance, kb afebrile with no abd tenderness. Counseling: I had a detailed discussion with the patient and/or guardian regarding the historical points, exam findings, and any diagnostic results supporting the discharge/admit diagnosis, lab results, radiology results, the need for outpatient follow up, a family practitioner, to return to the emergency department if symptoms worsen or persist or if there are any questions or concerns that arise at home. 12/10 13:05 Order name: CBC with Diff; Complete Time: 13:42 kb 12/10 13:05 Order name: CMP; Complete Time: 14:07 kb 12/10 13:05 Order name: Lipase; Complete Time: 14:07 kb 12/10 13:05 Order name: Test, Urine; Complete Time: 13:44 kb 12/10 13:05 Order name: Urinalysis w/ reflexes; Complete Time: 13:45 kb 12/10 14:54 Order name: SARS-COV-2 Antigen Rapid; Complete Time: 15:35 EDMS 12/10 14:54 Order name: Influenza Screen (A ; Complete Time: 15:35 EDMS 12/10 13:06 Order name: IV Saline Lock; Complete Time: 13:35 kb 12/10 13:06 Order name: Labs collected and sent; Complete Time: 13:35 kb 12/10 15:06 Order name: PO challenge; Complete Time: 15:15 kb Administered Medications: 14:41 Drug: Famotidine IVP 20 mg IVP once; dilute with 10 mL 0.9% NaCl; give over 2 minutes jb4 Route: IVP; Site: left antecubital; 15:00 Follow up: Response: No adverse reaction; Marked relief of symptoms jb4 14:41 Drug: Ondansetron IVP 4 mg IVP once; over 2 minutes Route: IVP; Site: left antecubital; jb4 15:00 Follow up: Response: No adverse reaction; Marked relief of symptoms jb4 14:41 Drug: NS 0.9% IV 1000 ml IV at 1 bolus Per protocol; to be given as a bolus over 60 jb4 minutes Route: IV; Rate: 1 bolus; Site: left antecubital; 15:54 Follow up: Response: No adverse reaction; Marked relief of symptoms; IV Status: jb4 Completed infusion; IV Intake: 1000ml Disposition Summary: 12/10/24 15:36 Discharge Ordered Notes: Location: Home kb Condition: Stable kb Diagnosis - Nausea with vomiting, unspecified kb - Diarrhea, unspecified kb Followup: kb - With: Emergency Department - When: As needed - Reason: Worsening of condition Followup: kb - With: Private Physician - When: 2 - 3 days - Reason: Recheck today's complaints, Continuance of care, Re-evaluation by your physician Discharge Instructions: - Discharge Summary Sheet kb - Food Choices to Help Relieve Diarrhea, Adult kb - Viral Gastroenteritis, Adult, [id number] kb Forms: - Medication Reconciliation Form kb - Antibiotic Education kb - Prescription Opioid Use kb - Patient Portal Instructions kb - Leadership Thank You Letter kb Prescriptions: - Zofran 4 mg Oral tablet - take 1 tablet ORAL route every 6 hours As needed; 12 tablet; Refills: 0, kb Product Selection Permitted Signatures: Dispatcher [employer] EDMS Beata Russell, HOME TEACHING GRADES 9 THRU 12 TEACHER-C HOME TEACHING GRADES 9 THRU 12 TEACHER-Davy Davis, RN RN jb4 Genie Jeong, RN RN tm6 Corrections: (The following items were deleted from the chart) 13:06 13:06 CBC+H.LAB.BRZ ordered. EDMS EDMS 13:06 13:06 COMPREHENSIVE METABOLIC PANEL+C.LAB.BRZ ordered. EDMS EDMS 13:06 13:06 LIPASE+C.LAB.BRZ ordered. EDMS EDMS 13:06 13:06 Test, Urine+UC.LAB.BRZ ordered. EDMS EDMS 13:06 13:06 Urinalysis+U.LAB.BRZ ordered. EDMS EDMS
--- NOTE | 2024-12-10 15:36 | ER ---
Nurse's Notes [facility] Name: Adam Chisholm Age: 34 yrs Sex: Female : 1990 Arrival Date: 12/10/2024 Time: 12:36 Bed 12 Private MD: Diagnosis: Nausea with vomiting, unspecified;Diarrhea, unspecified Presentation: 12/10 13:00 Chief complaint: Patient states: started with nausea/vomiting/diarrhea. Can't tm6 keep anything down. Having shakes. Hot and cold. Nasal congestion, no cough. Coronavirus screen: Client denies travel out of the [place] in the last 14 days. Ebola Screen: Patient negative for fever greater than or equal to 101.5 degrees Fahrenheit, and additional compatible Ebola Virus Disease symptoms Patient denies exposure to infectious person. Patient denies travel to an Ebola-affected area in the 21 days before illness onset. No symptoms or risks identified at this time. Initial Sepsis Screen: Does the patient meet any 2 criteria? No. Patient's initial sepsis screen is negative. Does the patient have a suspected source of infection? No. Patient's initial sepsis screen is negative. Risk Assessment: Do you want to hurt yourself or someone else? Patient reports no desire to harm self or others. Onset of symptoms was December 09, 2024. 13:00 Method Of Arrival: Ambulatory tm6 13:00 Acuity: MARTIN 4 tm6 Triage Assessment: 13:00 General: Appears in no apparent distress. Behavior is calm, cooperative. Pain: tm6 Complains of pain in abdomen Pain currently is 7 out of 10 on a pain scale. EENT: Reports nasal congestion. Neuro: Level of Consciousness is awake, alert, obeys commands, Oriented to person, place, time, situation. Cardiovascular: Patient's skin is warm and dry. Respiratory: Airway is patent Respiratory effort is even, unlabored, Respiratory pattern is regular, symmetrical. GI: Abdomen is flat, non-distended, Reports lower abdominal pain, upper abdominal pain, diarrhea, nausea, vomiting. : No signs and/or symptoms were reported regarding the genitourinary system. Derm: No signs and/or symptoms reported regarding the dermatologic system. Musculoskeletal: No signs and/or symptoms reported regarding the musculoskeletal system. 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 - Infectious Disease History:: Denies. - Social history:: Smoking status: Reported history of juuling and/or vaping. Screenin:52 [facility] ED Fall Risk Assessment (Adult) History of falling in the last 3 months, jb4 including since admission No falls in past 3 months (0 pts) Confusion or Disorientation No (0 pts) Intoxicated or Sedated No (0 pts) Impaired Gait No (0 pts) Mobility Assist Device Used No (0 pt) Altered Elimination No (0 pt) Score/Fall Risk Level 0 - 2 = Low Risk Oriented to surroundings, Maintained a safe environment. Abuse screen: Denies threats or abuse. Nutritional screening: No deficits noted. Tuberculosis screening: No symptoms or risk factors identified. Assessment: 15:51 Reassessment: Patient appears in no apparent distress at this time. Patient and/or jb4 family updated on plan of care and expected duration. Pain level reassessed. Patient is alert, oriented x 3, equal unlabored respirations, skin warm/dry/pink. Patient states feeling better. Vital Signs: 12:58 BP 111 / 77; Pulse 93; Resp 17; Temp 98.5(O); Pulse Ox 98% on R/A; MAP 89 mmHg; Weight tm6 58.06 kg; Height 5 ft. 4 in. ; Pain 7/10; 12:58 Body Mass Index 21.97 (58.06 kg, 162.56 cm) tm6 12:58 Pain Scale: Adult tm6 ED Course: 12:39 Patient arrived in ED. ra3 12:57 Beata Russell FNP-C [facility]. kb 12:57 Felisa Navas MD is Attending Physician. kb 13:00 Arm band placed on right wrist. tm6 13:02 Triage completed. tm6 13:34 Initial lab(s) drawn, by sc, sent to lab. Urine collected: clean catch specimen, stephanie ty colored. Inserted saline lock: 20 gauge in left antecubital area, using aseptic technique. Blood collected. Flushed with 10 mL NS. 13:35 CBC with Diff Sent. ty 13:35 CMP Sent. ty 13:35 Lipase Sent. ty 13:35 Test, Urine Sent. ty 13:35 Urinalysis w/ reflexes Sent. ty 14:12 Patient placed in an exam room, on a stretcher. jb4 15:47 Davy Booker, RN is Primary Nurse. jb4 15:52 Patient has correct armband on for positive identification. Call light in reach. Side jb4 rails up X 1. Provided Education on: discharge instruction.. 15:52 No provider procedures requiring assistance completed. IV discontinued, intact, jb4 bleeding controlled, No redness/swelling at site. Pressure dressing applied. Administered Medications: 14:41 Drug: Famotidine IVP 20 mg IVP once; dilute with 10 mL 0.9% NaCl; give over 2 minutes jb4 Route: IVP; Site: left antecubital; 15:00 Follow up: Response: No adverse reaction; Marked relief of symptoms jb4 14:41 Drug: Ondansetron IVP 4 mg IVP once; over 2 minutes Route: IVP; Site: left antecubital; jb4 15:00 Follow up: Response: No adverse reaction; Marked relief of symptoms jb4 14:41 Drug: NS 0.9% IV 1000 ml IV at 1 bolus Per protocol; to be given as a bolus over 60 jb4 minutes Route: IV; Rate: 1 bolus; Site: left antecubital; 15:54 Follow up: Response: No adverse reaction; Marked relief of symptoms; IV Status: jb4 Completed infusion; IV Intake: 1000ml Intake: 15:54 IV: 1000ml; Total: 1000ml. jb4 Outcome: 15:36 Discharge ordered by MD. clarke 15:52 Discharged to home ambulatory, jb4 15:52 Condition: stable 15:52 Discharge instructions given to patient, Instructed on discharge instructions, follow up and referral plans. medication usage, Demonstrated understanding of instructions, follow-up care, medications, Prescriptions given X 1, 15:55 Patient left the ED. jb4 Signatures: Beata Russell, JACOBOC SPA HOST-CkDavy Berg, RN RN jb4 Genie Jeong RN RN tm6 Sandee Dennis ra3 Farhan Mednoza Corrections: (The following items were deleted from the chart) 13:04 13:00 EKG completed in triage. Results shown to MD. tm6 tm6
[2024-12-10 16:26] VITALS: BP 111/77; TEMP 98.5; O2SAT 98
== END 2024-12-10 15:55 | disposition home or self-care (01) ==
LOC: ER 12:36
DX: R11.2 Nausea with vomiting, unspecified (principal); R19.7 Diarrhea, unspecified; Z11.52 Encounter for screening for COVID-19
CPT/HCPCS: 36415; 80053; 81001; 81025; 83690; 85025; 87804; 87811; 96361; 96374; 96375; 99284; J2405; J7030